=== PATIENT | male | born 1955 | race Caucasian/White ===

== ENCOUNTER 2023-09-17 13:59 | Outpatient (RCR) | payer OTHER, SELFPAY | END 2023-10-31 17:00 | disposition home or self-care (01) | LOC: HO.WCC 13:59 | PROVIDERS: PCP Internal Medicine; Referring Provider Internal Medicine; Visit Provider Surgery | DX: E11.622 Type 2 diabetes mellitus with other skin ulcer (principal); L97.812 Non-pressure chronic ulcer of other part of right lower leg with fat layer exposed; S81.011A Laceration without foreign body, right knee, initial encounter; I87.311 Chronic venous hypertension (idiopathic) with ulcer of right lower extremity; E11.40 Type 2 diabetes mellitus with diabetic neuropathy, unspecified; Z79.4 Long term (current) use of insulin; Z86.718 Personal history of other venous thrombosis and embolism | CPT/HCPCS: 11042; 11043 ==